=== PATIENT | female | born 1930 | race Two or more races ===

== ENCOUNTER 2019-04-09 06:14 | Day surgery (SDC) | payer OTHER ==
[2019-04-08 13:52] VITALS: BMI 21.9
[2019-04-09] MEDS ORDERED: CIPROFLOXACIN HCL 0.3% OPHTH 2.5ML BOTTLE OP SCH (06:45)
[2019-04-09] MEDS ORDERED: TROPICAMIDE 1% OPHTH SOLN 15 ML BOTTLE OP SCH (06:45)
[2019-04-09] MEDS ORDERED: PHENYLEPHRINE 2.5% OPHTH SOLN 15 ML BOTTLE OP SCH (06:45)
[2019-04-09] MEDS ORDERED: KETOROLAC TROMETHAMINE 0.5% EYE DROP 1 DROP DROPS OP SCH (06:45)
[2019-04-09] MEDS ORDERED: ACETAMINOPHEN 325 MG TABLET (FP) PO PRN (06:45)
[2019-04-09] MEDS ORDERED: CHONDROITIN SU A/HYALUR SOD 1 KIT ONE (07:15)
[2019-04-09 09:01] VITALS: BP 129/89; PULSE 82; TEMP 98.2
== END 2019-04-09 07:30 | disposition home or self-care (01) ==
LOC: JASU-SURG 06:14
PROVIDERS: ATTEND Ophthalmology

== ENCOUNTER 2019-04-30 07:43 | Day surgery (SDC) | payer OTHER ==
[2019-04-29 19:17] VITALS: BMI 21.9
[~2019-04-30 07:43] MED LIST: ACETAMINOPHEN 325 MG TABLET (FP) PO PRN; TOBRAMYCIN/DEXAMETHASONE OPHTH. OINTMENT 1 TUBE OD ONE
[2019-04-30] MEDS ORDERED: TROPICAMIDE 1% OPHTH SOLN 15 ML BOTTLE ONE (08:10)
[2019-04-30] MEDS: KETOROLAC TROMETHAMINE 0.5% EYE DROP 1 DROP DROPS OP SCH ×3 (08:15→08:25)
[2019-04-30] MEDS: CIPROFLOXACIN HCL 0.3% OPHTH 2.5ML BOTTLE OP SCH ×3 (08:15→08:25)
[2019-04-30] MEDS: PHENYLEPHRINE 2.5% OPHTH SOLN 15 ML BOTTLE OP SCH ×3 (08:15→08:25)
[2019-04-30] MEDS: TROPICAMIDE 1% OPHTH SOLN 15 ML BOTTLE OP SCH ×3 (08:15→08:25)
--- NOTE | 2019-04-30 09:36 | HP ---
History & Physical Update - History History: No Change - Physical Physical: No Change - Assessment Assessment: No Change - Plan Plan: No Change (Dr. Blackwell's H and P reviewed from 03/19/19 no changes)
--- NOTE | 2019-04-30 09:40 | HP ---
- Patient Scheduled date of Surgery: 04/30/19 Scheduled Surgical Procedure: Phacoemulsification and cataract extraction with PCIOL (using trypan blue) Affected Eye: Right (mature) Chief Complaint (Indication for surgery): Decreased vision affecting ADLs - Ocular History Other Eye History: Other (none) Eye Medications: besivance Previous Eye Surgery: none - Medical History Illnesses: Other (osteoporosis) Current Medications: Ambulatory Orders Zoledronic Acid/Man/Water [Reclast -] 5 mg IVPB ONCE 04/08/19 Anti Reflux Medication 1 tab PO PRN PRN 04/30/19 Allergies/Adverse Reactions: Allergies Allergy/AdvReac Type Severity Reaction Status Date / Time No Known Allergies Allergy Verified 04/30/19 08:39 Ocular Examination - Best Corrected Visual Acuity Distance: Right eye: Count Fingers Distance: Left eye: 20/200 - External/Slit Lamp Examination Abnormalities: decreased TBUT - Intraocular Pressure Intraocular Pressure - Right eye: 14 Intraocular Pressure-Left eye: 14 - Lens Lens: 3-4+ NS 2+ psc - Vitreous/Retina Vitreous/Retina: c:d 0.3 m/v/p wnl - Special Examination M - Right eye: -0.75-1.50 x015 M - Left eye: -0.75-0.75 x085 K - Right eye: 46.25/46.75 x100 K - Left eye: 45.75/46.50 x025 AL - Right eye: 22.17 AL - Left eye: 21.83 IOL ba.5 AUOOTO IOL sulcus: 21.5 IOL AC: 18.5 - Impression Impression: Cataract Right Eye (mature) - Plan Plan: Phacoemulsification and cataract extraction - IOL Right eye Post-hospital care will be provided in office on: 05/01/19
[2019-04-30] MEDS ORDERED: TRYPAN BLUE 0.5 ML DISP.SYRIN ONE (09:54)
[2019-04-30] MEDS ORDERED: PROPOFOL 20 ML ONE ×4 (10:00→12:24)
[2019-04-30] MEDS ORDERED: MIDAZOLAM HCL 2 MG/2 ML SINGLE DOSE VIAL ONE (10:01)
[2019-04-30] MEDS ORDERED: BUPIVACAINE HCL/PF 0.75% 10 ML VIAL NR ONE (10:04)
[2019-04-30] MEDS ORDERED: LIDOCAINE HCL/PF 2% SDV 5ML VIAL INF ONE (10:04)
[2019-04-30] MEDS ORDERED: POVIDONE-IODINE 5% OPHTHALMIC PREP 30 ML SOLUTION OD ONE (10:07)
[2019-04-30] MEDS ORDERED: BSS (NA/CA/MG/K) BALANCED SALT SOLUTION OPHTH SOLN 15 ML BOTTLE OD ONE (10:12)
[2019-04-30] MEDS ORDERED: CHONDROITIN SU A/HYALUR SOD 1 KIT IO ONE ×2 (10:12)
[2019-04-30] MEDS ORDERED: LIDOCAINE HCL 1% PRESERVATIVE FREE - 30ML VIAL IO ONE (10:15)
[2019-04-30] MEDS ORDERED: EPINEPHrine/PF 1 MG/1 ML (1:1,000) AMPULE SQ ONE (10:20)
[2019-04-30] MEDS ORDERED: TOBRAMYCIN/DEXAMETHASONE OPHTH. OINTMENT 1 TUBE OD ONE (10:43)
--- NOTE | 2019-04-30 10:50 | OP ---
Ophthalmology Operative Note Pre-Operative Diagnosis: Mature cataract Affected Eye: Right Operation: Phacoemulsification and cataract extraction with PCIOL Findings: mature cataract right eye Post-Operative Diagnosis: Same as Pre-op Fixer Boarding Room: None Anesthesiologist: Saira Wheeler Anesthesia: Retrobulbar Specimens Removed: none Estimated blood loss: < 1 cc Drains & Tubes with Location: none Operative Report Dictated: Yes
[2019-04-30 10:59] VITALS: TEMP 97.5
[2019-04-30 11:40] VITALS: BP 124/69; PULSE 74
--- NOTE | 2019-04-30 13:48 | OP ---
DATE OF OPERATION: DATE OF DICTATION: 04/30/2019 PREOPERATIVE DIAGNOSIS: Mature cataract, right eye. POSTOPERATIVE DIAGNOSIS: Mature cataract, right eye. PROCEDURE: Phacoemulsification and cataract extraction with insertion of posterior chamber intraocular lens, right eye. SURGEON: Brie Pollack MD PRIVATE EYE: None. ANESTHESIA: Retrobulbar block. ANESTHESIOLOGIST: VIN Nam OPERATIVE PROCEDURE: Following satisfactory intravenous sedation, the patient received local anesthesia using a 50/50 mixture of 2% lidocaine and Marcaine 0.75%. A Van Lint lid block was delivered to the right eye using 4 mL of the mixture and a retrobulbar injection using 4 mL of the mixture. The patient was then prepped and draped in the usual sterile fashion so as to expose only the right eye. Ophthalmic Betadine was instilled into the inferior fornix and lashes were taped out of the surgical field. An eyelid speculum was placed into the right eye. Paracentesis was made in superior temporal clear cornea at the limbus. Then 0.5 mL of nonpreserved lidocaine 1% was injected into the anterior chamber and then 1 mL of dilute epinephrine 1:10,000 was injected into the anterior chamber to improve pupillary dilation. Viscoelastic material was instilled into the anterior chamber via the paracentesis. A 2.4-mm keratome blade was then used to create the main incision in temporal clear cornea at the limbus. A continuous curvilinear capsulorhexis was performed using a cystotome and Utrata forceps. Hydrodissection of the lens cortex was performed using BSS on a cannula until the nucleus was noted to be freely rotating. The phacoemulsification tip was then inserted via the main wound and used to scope 2 perpendicular grooves into the lens nucleus. The nucleus was cracked into 4 quadrants. Each quadrant was lifted out of the capsule into the iris plane and individually phacoemulsified. The remaining cortical material was then aspirated using the irrigation/aspiration port. The capsular bag was inflated using ProVisc and a preloaded AcrySof lens model AU00T0 power +22.5 diopters was injected into the capsular bag. It was centered using a Sinskey hook. The residual viscoelastic material was removed from the anterior chamber using irrigation and aspiration. The wound edges were hydrated using BSS. The wound was tested for leakage and was found to be watertight. Tobradex ointment was placed in the eye, and the speculum was removed from the eye, and the eyelid was closed. A sterile dressing and shield were placed over the eye. The patient was transferred to the recovery room in stable condition, told to follow up in 1 day. BRIE POLLACK M.D. [id number]
== END 2019-04-30 11:43 | disposition home or self-care (01) ==
LOC: JASU-SURG 07:43
PROVIDERS: ATTEND Ophthalmology
PROC: 08RJ3JZ Replacement of Right Lens with Synthetic Substitute, Percutaneous Approach (ICD-10-PCS; principal; 2019-04-30 10:12)
DX: H25.091 Other age-related incipient cataract, right eye (principal)

== ENCOUNTER 2019-05-07 06:10 | Day surgery (SDC) | payer OTHER ==
[2019-05-06 15:41] VITALS: BMI 20.1
[~2019-05-07 06:10] MED LIST changes: -ACETAMINOPHEN 325 MG TABLET (FP) PO PRN; -TOBRAMYCIN/DEXAMETHASONE OPHTH. OINTMENT 1 TUBE OD ONE; +TOBRAMYCIN/DEXAMETHASONE OPHTH. OINTMENT 1 TUBE OS ONE
[2019-05-07] MEDS ORDERED: TROPICAMIDE 1% OPHTH SOLN 15 ML BOTTLE ONE (06:29)
[2019-05-07] MEDS: TROPICAMIDE 1% OPHTH SOLN 15 ML BOTTLE OP SCH ×3 (06:30→07:00)
[2019-05-07] MEDS: CIPROFLOXACIN HCL 0.3% OPHTH 2.5ML BOTTLE OP SCH ×3 (06:30→07:00)
[2019-05-07] MEDS: KETOROLAC TROMETHAMINE 0.5% EYE DROP 1 DROP DROPS OP SCH ×3 (06:30→07:00)
[2019-05-07] MEDS: PHENYLEPHRINE 2.5% OPHTH SOLN 15 ML BOTTLE OP SCH ×3 (06:30→07:00)
[2019-05-07] MEDS ORDERED: ACETAMINOPHEN 325 MG TABLET (FP) PO PRN (07:00)
[2019-05-07] MEDS ORDERED: CHONDROITIN SU A/HYALUR SOD 1 KIT ONE ×2 (07:16→08:57)
--- NOTE | 2019-05-07 07:17 | HP ---
History & Physical Update - History History: No Change - Physical Physical: No Change - Assessment Assessment: No Change - Plan Plan: No Change (H and P reviewed by Dr. Blackwell 04/08/19 no changes)
[2019-05-07] MEDS ORDERED: TOBRAMYCIN/DEXAMETHASONE OPHTH. OINTMENT 1 TUBE ONE (07:19)
[2019-05-07] MEDS ORDERED: EPINEPHrine/PF 1 MG/1 ML (1:1,000) AMPULE ONE (07:19)
[2019-05-07] MEDS ORDERED: POVIDONE-IODINE 5% OPHTHALMIC PREP 30 ML SOLUTION ONE (07:20)
[2019-05-07] MEDS ORDERED: ACETYLCHOLINE 1:100 INTRA-OCUL 20 MG/2 ML KIT ONE (07:20)
[2019-05-07] MEDS ORDERED: TRYPAN BLUE 0.5 ML DISP.SYRIN ONE (07:20)
[2019-05-07] MEDS ORDERED: LIDOCAINE HCL/PF 1% SDV 5ML VIAL ONE (07:20)
[2019-05-07] MEDS ORDERED: TETRACAINE 0.5% OPHTH SOLN 2 ML BOTTLE ONE (07:20)
--- NOTE | 2019-05-07 07:21 | HP ---
- Patient Scheduled date of Surgery: 05/07/19 Scheduled Surgical Procedure: Phacoemulsification and cataract extraction with PCIOL Affected Eye: Left Chief Complaint (Indication for surgery): Decreased vision affecting ADLs - Ocular History Other Eye History: Other (none) Eye Medications: vigamox 0/3 Previous Eye Surgery: s/p ce/pciol od - Medical History Illnesses: Other (osteoporosis) Current Medications: Ambulatory Orders Zoledronic Acid/Man/Water [Reclast -] 5 mg IVPB ONCE 04/08/19 Anti Reflux Medication 1 tab PO PRN PRN 04/30/19 Allergies/Adverse Reactions: Allergies Allergy/AdvReac Type Severity Reaction Status Date / Time No Known Allergies Allergy Verified 05/07/19 07:08 Ocular Examination - Best Corrected Visual Acuity Distance: Right eye: 20/20 Distance: Left eye: 20/200 - External/Slit Lamp Examination Abnormalities: arcus, decreased tbut - Intraocular Pressure Intraocular Pressure - Right eye: 15 Intraocular Pressure-Left eye: 14 - Lens Lens: 3-4+ NS - Vitreous/Retina Vitreous/Retina: C:D 0.3 m/v/pwnl - Special Examination M - Right eye: +1.50-1.25 x 017 M - Left eye: -0.75- 0.75 x 085 K - Right eye: 45.5/46.75 x100 K - Left eye: 45.5/46.5 x025 AL - Right eye: 22.17 AL - Left eye: 21.83 IOL bag: +23.5 AUOOTO IOL sulcus: +22.5 [id number] IOL AC: +19.5 [id number] - Impression Impression: Cataract Left Eye (mature) - Plan Plan: Phacoemulsification and cataract extraction - IOL Left eye Post-hospital care will be provided in office on: 05/07/19
[2019-05-07] MEDS ORDERED: BUPIVACAINE HCL/PF 0.75% 10 ML VIAL ONE (07:26)
[2019-05-07] MEDS ORDERED: LIDOCAINE HCL/PF 2% SDV 5ML VIAL ONE (07:26)
[2019-05-07] MEDS ORDERED: PROPOFOL 20 ML ONE ×2 (07:50)
[2019-05-07] MEDS ORDERED: LIDOCAINE HCL/PF 2% SDV 5ML VIAL PNB ONE (07:55)
[2019-05-07] MEDS ORDERED: BUPIVACAINE HCL/PF 0.75% 10 ML VIAL RB ONE (07:55)
[2019-05-07] MEDS ORDERED: BUPIVACAINE HCL/PF 0.75% 10 ML VIAL PNB ONE (07:56)
[2019-05-07] MEDS ORDERED: LIDOCAINE HCL/PF 2% SDV 5ML VIAL INF ONE (07:56)
[2019-05-07] MEDS ORDERED: CHONDROITIN SU A/HYALUR SOD 1 KIT IO ONE ×2 (08:05→08:20)
[2019-05-07] MEDS ORDERED: EPINEPHrine/PF 1 MG/1 ML (1:1,000) AMPULE IV ONE (08:10)
[2019-05-07] MEDS ORDERED: TOBRAMYCIN/DEXAMETHASONE OPHTH. OINTMENT 1 TUBE OS ONE (08:34)
--- NOTE | 2019-05-07 08:40 | OP ---
Ophthalmology Operative Note Pre-Operative Diagnosis: Mature cataract Affected Eye: Left Operation: Phacoemulsification and cataract extraction with PCIOL Findings: mature cataract left eye Post-Operative Diagnosis: Same as Pre-op Funeral Service Practitioner/Embalmer: None Anesthesiologist: Trixie Tam MD Anesthesia: Retrobulbar Specimens Removed: none Estimated blood loss: < 1cc Drains & Tubes with Location: none Operative Report Dictated: Yes
[2019-05-07] MEDS ORDERED: ACETAMINOPHEN 325 MG TABLET (FP) ONE (09:05)
--- NOTE | 2019-05-07 09:28 | OP ---
DATE OF OPERATION: DATE OF DICTATION: 05/07/2019 PREOPERATIVE DIAGNOSIS: Mature cataract, left eye. POSTOPERATIVE DIAGNOSIS: Mature cataract, left eye. PROCEDURE: Phacoemulsification and cataract extraction with insertion of posterior chamber intraocular lens, left eye. SURGEON: Brie Pollack MD EQUIPMENT ANALYST: None. ANESTHESIA: Retrobulbar block. ANESTHESIOLOGIST: Trixie Tam MD OPERATIVE PROCEDURE: Following satisfactory intravenous sedation, the patient received local anesthesia using a 50/50 mixture of lidocaine 2% and Marcaine 0.75%. A van Lint lid block was delivered to the left eye using 4 mL of the mixture and a retrobulbar injection using 4 mL of the mixture. The patient was then prepped and draped in the usual sterile fashion so as to expose only the left eye. Ophthalmic Betadine was instilled into the inferior fornix. The lashes were taped out of the surgical field. An eyelid speculum was placed into the left eye. A paracentesis was made in inferior clear cornea at the limbus. Viscoelastic material was instilled into the anterior chamber via the paracentesis. A 2.4-mm was then used to create the main incision in temporal clear cornea at the limbus. A continuous curvilinear capsulorrhexis was performed using a cystotome and Utrata forceps. Hydrodissection of the lens cortex was performed using BSS on a cannula until the nucleus was noted to be freely rotating. The phacoemulsification tip was then inserted via the main wound and used to sculpt 2 perpendicular grooves into the lens nucleus. The nucleus was cracked into 4 quadrants. Each quadrant was lifted out of the capsule into the iris plane and individually phacoemulsified. The remaining cortical material was then aspirated using the irrigation and aspiration port. The capsular bag was inflated using Provisc, and a preloaded AcrySof lens model [id number], power +23.5 diopters, was injected into the capsular bag and centered using a Sinskey hook. The residual viscoelastic material was removed from the anterior chamber using irrigation and aspiration. The wound edges were hydrated using BSS. The wound was tested for leakage. It was found to not be watertight. Therefore, one 10-0 nylon suture was placed across the eye. It was again tested and found to be watertight. TobraDex ointment was placed in the eye. The speculum was removed from the eye, and the eyelid was closed. A sterile dressing and shield were placed over the eye. The patient was transferred to the recovery room in stable condition, told to follow up in 1 day. BRIE POLLACK M.D. [id number]
[2019-05-07 13:41] VITALS: BP 116/57; PULSE 80; TEMP 97.5
== END 2019-05-07 09:50 | disposition home or self-care (01) ==
LOC: JASU-SURG 06:10
PROVIDERS: ATTEND Ophthalmology
PROC: 08RK3JZ Replacement of Left Lens with Synthetic Substitute, Percutaneous Approach (ICD-10-PCS; principal; 2019-05-07 07:30)
DX: H25.092 Other age-related incipient cataract, left eye (principal)